=== PATIENT | female | born 2000 | race Caucasian/White ===

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

== ENCOUNTER 2018-02-08 03:12 | Emergency (ER) | payer MEDICAID, OTHER ==
[2018-02-08 03:25] VITALS: BP 106/69; PULSE 92; RESP 14; TEMP 97.5; O2SAT 97
--- NOTE | 2018-02-08 03:47 | C.PDOC ---
History Of Present Illness 17 year old female presents to the ER after vomiting dark material 6 hours ago. Patient had churros and popcorn for dinner, she reports she felt whoosy and anxious after vomiting and right sided abdominal discomfort during vomiting episode which has resolved since then. Patient has a Hx of anxiety with many prior evaluations in the ER. Denies chest pain or SOB. Time Seen by Provider: 02/08/18 03:34 Chief Complaint (Nursing): GI Problem History Per: Patient History/Exam Limitations: no limitations Current Symptoms Are (Timing): Still Present Quality Of Discomfort: Unable To Describe Associated Symptoms: Vomiting. denies: Fever, Chills, Chest Pain, Other (SOB) Exacerbating Factors: None Alleviating Factors: None Recent travel outside of the [place]: No Abnormal Vaginal Bleeding: No Past Medical History Reviewed: Historical Data, Nursing Documentation, Vital Signs Vital Signs: Last Vital Signs Temp 97.5 F L 02/08/18 03:20 Pulse 92 H 02/08/18 03:20 Resp 14 02/08/18 03:20 BP 106/69 02/08/18 03:20 Pulse Ox 97 02/08/18 04:54 - Medical History PMH: Anemia Family History: States: Unknown Family Hx - Social History Hx Tobacco Use: No Hx Alcohol Use: No Hx Substance Use: No - Immunization History Hx Tetanus Toxoid Vaccination: No Hx Influenza Vaccination: No Hx Pneumococcal Vaccination: No Review Of Systems Constitutional: Negative for: Fever, Chills Cardiovascular: Negative for: Chest Pain, Palpitations Respiratory: Negative for: Cough, Shortness of Breath Gastrointestinal: Positive for: Vomiting. Negative for: Abdominal Pain Physical Exam - Physical Exam Appears: Non-toxic, No Acute Distress Skin: Normal Color, Warm, Dry Head: Atraumatic, Normacephalic Eye(s): bilateral: Normal Inspection Oral Mucosa: Moist Chest: Symmetrical, No Tenderness Cardiovascular: Rhythm Regular Respiratory: Normal Breath Sounds, No Rales, No Rhonchi, No Wheezing Gastrointestinal/Abdominal: Soft, No Tenderness Neurological/Psych: Oriented x3, Normal Speech ED Course And Treatment O2 Sat by Pulse Oximetry: 97 (Room air) Pulse Ox Interpretation: Normal Medical Decision Making Medical Decision Making: nausea and vomiting 6 hrs ago benign exam now, pt admits to anxiety and no nausea nor abd pain now. h/o same, "many times" mother refused urine and blood tests, but demands diagnosis of this, which has happened "many times before" without evaluation. Mother is concerned about "stones" when asked does the child have a history of renal or GB stones, answers in the negative. When explained that renal colic and biliary colic are of low suspicion, though may be further evaluated with blood and urinalysis pt's mother is incredulous that diagnosis is not able to be made purely on the HPI. pt's mother doubts the validity of this MD's credentials as unable to make diagnosis of this asymptomatic patient without further testing. pt's mother scoffed that dyspepsia may be related to eating Churros and Popcorn and soda for a dinner meal. She refuses to put on patient gown, refuses to provide urinalysis Pt's mother demands to see News Broadcaster Telemarketing Fundraiser, which was explained may be accommodated but workup of blood and urine would still have to be processed. pt's mother is incredulous that her 17 y/o daughter may not be seen by News Broadcaster immediately without workup. destiny mother @ bedside seems intoxicated- strong smell of alcohol on her breath , argumentative, confrontational, foul-mouthed. pt and mother decline further w/u and eloped from ED within 5 minutes of initial approach to bedside. Disposition - Disposition Disposition: ELOPEMENT - ER ONLY Disposition Time: 03:47 Condition: GOOD Forms: [facility] (Mozambican) - Clinical Impression Clinical Impression: Vomiting - Scribe Statement The provider has reviewed the documentation as recorded by the Scriblolly Shabazz All medical record entries made by the Tanmayiblolly were at my direction and personally dictated by me. I have reviewed the chart and agree that the record accurately reflects my personal performance of the history, physical exam, medical decision making, and the department course for this patient. I have also personally directed, reviewed, and agree with the discharge instructions and disposition.
== END 2018-02-08 03:34 | disposition left against medical advice (07) ==
LOC: C.ER 03:12
DX: R11.10 Vomiting, unspecified (principal)

== ENCOUNTER 2018-09-01 18:07 | Emergency (ER) | payer MEDICAID ==
[2018-09-01 19:49] LABS: HCG,QUALITATIVE URINE NEGATIVE (NEGATIVE)
[2018-09-01] MEDS ORDERED: Sodium Chloride 0.9% 1,000 ML IV ONE (20:01)
--- NOTE | 2018-09-01 20:01 | C.PDOC ---
History Of Present Illness 17 y/o female presents to the ER complaining of LLQ abdominal pain which has been present for the past few days. Patient describes the pain as sharp ,stabbing, and intermittent. Patient rates the pain 3/10. Denies having nausea, vomiting, and urinary symptoms. Time Seen by Provider: 09/01/18 20:00 Chief Complaint (Nursing): Abdominal Pain History Per: Patient History/Exam Limitations: no limitations Onset/Duration Of Symptoms: Days Current Symptoms Are (Timing): Still Present Severity: Moderate Location Of Pain/Discomfort: LLQ Associated Symptoms: denies: Nausea, Vomiting, Urinary Symptoms Past Medical History Reviewed: Historical Data, Nursing Documentation, Vital Signs Vital Signs: Last Vital Signs Temp 98.8 F 09/01/18 18:14 Pulse 111 H 09/01/18 18:14 Resp 19 09/01/18 18:14 BP 109/76 09/01/18 18:14 Pulse Ox 100 09/01/18 18:14 - Medical History PMH: Anemia Surgical History: No Surg Hx Family History: States: No Known Family Hx - Social History Hx Tobacco Use: No Hx Alcohol Use: No Hx Substance Use: No - Immunization History Hx Tetanus Toxoid Vaccination: No Hx Influenza Vaccination: No Hx Pneumococcal Vaccination: No Review Of Systems Constitutional: Negative for: Fever, Chills Gastrointestinal: Positive for: Abdominal Pain (LLQ abdominal pain). Negative for: Nausea, Vomiting Genitourinary: Negative for: Dysuria, Hematuria Physical Exam - Physical Exam Appears: Non-toxic, No Acute Distress Skin: Warm, Dry Head: Normacephalic Eye(s): bilateral: Normal Inspection Cardiovascular: Rhythm Regular Respiratory: No Rales, No Rhonchi, No Wheezing Gastrointestinal/Abdominal: Soft, Tenderness (LLQ tenderness), No Guarding, No Rebound Neurological/Psych: Oriented x3, Normal Speech ED Course And Treatment - Laboratory Results Result Diagrams: 09/01/18 20:26 09/01/18 20:26 O2 Sat by Pulse Oximetry: 100 (RA) Pulse Ox Interpretation: Normal Progress Note: Labs, UA, HCG, and CT- Abd & Pelv ordered. Patient treated with Pepcid IV and IV Fluids. Reevaluation Time: 23:23 Reassessment Condition: Improved Medical Decision Making Medical Decision Making: Upon provider reevaluation patient is feeling better, is medically stable, and requires no further treatment in the ED at this time. Patient will be discharged home with Rx for macrobid, miralax. Counseling was provided and all questions were answered regarding diagnosis and need for follow up dr santana. There is agreement to discharge plan. Return if symptoms persist or worsen. Disposition Counseled Patient/Family Regarding: Studies Performed, Diagnosis, Need For Followup, Rx Given - Disposition Referrals: Mitch Santana [Medical Doctor] - Disposition: HOME/ ROUTINE Disposition Time: 20:01 Condition: FAIR Additional Instructions: Please return if symptoms recur Prescriptions: Nitrofurantoin Macrocrystals [Macrobid] 1 cap PO BID #14 cap Polyethylene Glycol 3350 [Miralax] 17 gm PO DAILY #270 ml Instructions: Acute Abdomen (Belly Pain), Adult (DC), Urinary Tract Infections in Adults, Constipation, Adult (DC) Forms: [employer] (Saudi Arabian) - Clinical Impression Clinical Impression: Abdominal pain, UTI (urinary tract infection), Constipation, Enteritis - Scribe Statement The provider has reviewed the documentation as recorded by the Bonnie Carrero Provider Attestation: All medical record entries made by the Tanmayibe were at my direction and personally dictated by me. I have reviewed the chart and agree that the record accurately reflects my personal performance of the history, physical exam, medical decision making, and the department course for this patient. I have also personally directed, reviewed, and agree with the discharge instructions and disposition.
[2018-09-01 20:15] LABS: SQUAMOUS EPITHIAL 8 /hpf (0-5); URINE BACTERIA FEW (<OCC); URINE BILIRUBIN NEGATIVE (NEGATIVE); URINE BLOOD 1+ (NEGATIVE); URINE CLARITY Hazy (Clear); URINE COLOR Straw (YELLOW); URINE GLUCOSE (UA) NORMAL (Normal); URINE LEUKOCYTE ESTERASE 3+ Leu/uL (Negative); URINE PROTEIN NEGATIVE (NEGATIVE); URINE UROBILINOGEN NORMAL mg/dL (0.2-1.0)
[2018-09-01] MEDS ORDERED: Sodium Chloride 0.9% 1,000 ML ONE (20:28)
[2018-09-01 20:36] LABS: BASO # 0.1 K/uL (0.0-0.2); BASO % 0.9 % (0.0-2.0); EOS # 0.1 K/uL (0.0-0.7); EOS % 1.5 % (0.0-4.0); HEMOGLOBIN 12.6 g/dL (11.0-16.0); LYMPH # 3.1 K/uL (1.0-4.3); LYMPH % 40.8 % (20.0-40.0); MEAN CELL VOLUME 87.1 fL (81.0-99.0); MEAN CORPUSCULAR HEMOGLOBIN 29.2 pg (27.0-31.0); MEAN CORPUSCULAR HGB CONC 33.5 g/dL (33.0-37.0); MEAN PLATELET VOLUME 9.2 fL (7.2-11.7); MONO # 0.5 K/uL (0.0-0.8); MONO % 6.6 % (0.0-10.0); NEUT # 3.8 K/uL (1.8-7.0); NEUT % 50.2 % (50.0-75.0); RBC 4.32 Mil/uL (3.80-5.20); RED CELL DISTRIBUTION WIDTH 14.5 % (11.5-14.5); WHITE BLOOD COUNT 7.6 K/uL (4.8-10.8)
[2018-09-01] MEDS ORDERED: cefTRIAXone IV 1 gm in Dextros 50 ML IVPB ONE (20:39)
[2018-09-01 20:51] LABS: ALB/GLOB RATIO 1.7 (1.0-2.1); ALBUMIN 5.1 g/dL (3.5-5.0); ALT/SGPT 25 U/L (9-52); AST/SGOT 24 U/L (14-36); BLOOD UREA NITROGEN 8 mg/dL (7-17); CALCIUM 9.8 mg/dl (8.6-10.4); GFR NON-AFRICAN AMERICAN > 60; LIPASE 79 U/L (23-300)
[2018-09-01 20:54] LABS: INR 1.2; PROTHROMBIN TIME 12.6 SECONDS (9.7-12.2)
[2018-09-01] MEDS ORDERED: Iodixanol 320 MG/ML 100 ML BOTTLE IV ONE (21:20)
[2018-09-01 21:29] VITALS: O2SAT 100
[2018-09-01 23:37] VITALS: BP 103/64; PULSE 60; RESP 14; TEMP 98.6
--- NOTE | 2018-09-02 08:28 | CT ---
Date of service: 09/01/2018 PROCEDURE: CT Abdomen and Pelvis without intravenous contrast HISTORY: Abdominal pain COMPARISON: None. TECHNIQUE: Multiple contiguous axial images were performed through the abdomen and pelvis with the use of intravenous contrast. Subsequently, sagittal and coronal reformatted images were obtained. Radiation dose: Total exam DLP = 193 mGy-cm. This CT exam was performed using one or more of the following dose reduction techniques: Automated exposure control, adjustment of the mA and/or kV according to patient size, and/or use of iterative reconstruction technique. FINDINGS: LOWER THORAX: Unremarkable. LIVER: Unremarkable. No gross lesion or ductal dilatation. GALLBLADDER AND BILE DUCTS: Prior cholecystectomy. PANCREAS: Unremarkable. No gross lesion or ductal dilatation. SPLEEN: Unremarkable. ADRENALS: Unremarkable. No mass. KIDNEYS AND URETERS: Unremarkable. No hydronephrosis. No solid mass. VASCULATURE: Unremarkable. No aortic aneurysm. BOWEL: Mild bowel wall thickening of the small bowel with mild fluid distension. Moderate amount of stool fills the colon. APPENDIX: Unremarkable. Normal appendix. PERITONEUM: Small amount of free fluid in the pelvic cul-de-sac. LYMPH NODES: Few shotty mesenteric lymph nodes for example in the right lashay abdomen measuring up to 1.1 centimeters on series 3, image 86, nonspecific. Few shotty para-aortic inguinal lymph nodes. BLADDER: Unremarkable. REPRODUCTIVE: 1.7 x 1.6 centimeter mildly complex low-attenuation lesion in right adnexa. BONES: No acute fracture. OTHER FINDINGS: None. IMPRESSION: 1.7 x 1.6 centimeter mildly complex low-attenuation lesion in the right adnexa. Small amount of free fluid in the pelvic cul-de-sac. Clinical correlation. Correlation with pelvic ultrasound may be helpful if clinically indicated. Mild enteritis. Clinical correlation. Mild constipation. Few shotty mesenteric lymph nodes as described above. Clinical correlation. These findings were preliminarily reported at 11:14 p.m. on 09/01/[address] Jacob Fontaine from [employer].
== END 2018-09-01 23:50 | disposition home or self-care (01) ==
LOC: C.ER 18:07
DX: K52.9 Noninfective gastroenteritis and colitis, unspecified (principal); N39.0 Urinary tract infection, site not specified; K59.00 Constipation, unspecified; R10.9 Unspecified abdominal pain
CPT/HCPCS: 74177; 80053; 81001; 83690; 84703; 85025; 85610; 85730; 96374; 99284; J0696; J2405; J7030; Q9967

== ENCOUNTER 2019-01-15 18:51 | Emergency (ER) | payer MEDICAID ==
[2019-01-15 18:56] VITALS: BMI 21.2
[2019-01-15 18:59] VITALS: BP 108/67; PULSE 84; RESP 18; TEMP 98.9; O2SAT 100
--- NOTE | 2019-01-15 19:03 | C.PDOC ---
History Of Present Illness 18 year old female with no PMHx presents to ED with complaint of right ankle pain s/p injury that occurred 1 hour ago. Patient states she was running when she tripped and twisted her right ankle. She has pain to the top of her right foot, anterior lower leg, and her medial ankle. She states she has difficulty ambulating secondary to the pain but is able to bear weight. States she has hurt her right foot in the past. She denies head strike or LOC. No open wounds, numbness, paresthesias, or weakness. Time Seen by Provider: 01/15/19 19:01 Chief Complaint (Nursing): Lower Extremity Problem/Injury History Per: Patient History/Exam Limitations: no limitations Onset/Duration Of Symptoms: Hrs (1) Current Symptoms Are (Timing): Still Present - Ankle/Foot Description Of Injury: Fell, Twisted Currently Unable To: Other (ambulate) Past Medical History Reviewed: Historical Data, Nursing Documentation, Vital Signs Vital Signs: Last Vital Signs Temp 98.9 F 01/15/19 18:56 Pulse 84 01/15/19 18:56 Resp 18 01/15/19 18:56 BP 108/67 01/15/19 18:56 Pulse Ox 100 01/15/19 18:56 - Medical History PMH: Anemia, Gall Bladder Disease Surgical History: Cholecystectomy Family History: States: Unknown Family Hx - Social History Hx Tobacco Use: No Hx Alcohol Use: No Hx Substance Use: No - Immunization History Hx Tetanus Toxoid Vaccination: No Hx Influenza Vaccination: No Hx Pneumococcal Vaccination: No Review Of Systems Constitutional: Negative for: Fever, Chills, Weakness Eyes: Negative for: Vision Change Cardiovascular: Negative for: Chest Pain, Palpitations, Light Headedness Respiratory: Negative for: Cough, Shortness of Breath Gastrointestinal: Negative for: Nausea, Vomiting, Abdominal Pain, Diarrhea Musculoskeletal: Positive for: Foot Pain (top of right foot), Other (right medial ankle pain) Skin: Negative for: Rash, Bruising Neurological: Negative for: Weakness, Numbness, Headache, Dizziness Physical Exam - Physical Exam Appears: Well, Non-toxic, No Acute Distress Skin: Normal Color, Warm, Dry Head: Atraumatic, Normacephalic Eye(s): bilateral: Normal Inspection, PERRL, EOMI Nose: Normal Neck: Normal ROM, Supple Chest: Symmetrical, No Deformity Cardiovascular: Rhythm Regular Respiratory: Normal Breath Sounds, No Accessory Muscle Use Back: Normal Inspection Extremity: No Normal ROM (decreased ROM to right ankle and digits secondary to pain), Tenderness (to the proximal metatarsels on the right foot; anterior distal tibia; and the medial malleolus), Capillary Refill (<2 seconds), Swelling (mild to lateral dorsal right foot), Other (normal thompsons test, achilles tendon intact) Extremity: Left: Atraumatic, Normal Color And Temperature Pulses: Left Radial: Normal, Right Radial: Normal, Left Dorsalis Pedis: Normal, Right Dorsalis Pedis: Normal Neurological/Psych: Oriented x3, Normal Speech, Normal Cognition, Normal Motor, Normal Sensation Gait: With Assistance ED Course And Treatment O2 Sat by Pulse Oximetry: 100 (RA) Medical Decision Making Medical Decision Making: Impression: Right ankle injury Plan: * Right Ankle XR * Right Foot XR * Right Tib/Fib XR Xrays negative as read by me Splint applied to right ankle and crutches provided by process development technician secondary to pain and difficulty ambulating. Neurovascular exam remains unchanged after splint, pt able to move digits without difficulty, DP pulse 2/2. Advised podiatry followup. Pt states she will followup as instructed. Patient able to demonstrate safe and appropriate crutch use before leaving ED. Diagnostic testing results and plan of care discussed with patient. Strict instructions given regarding importance of followup, and signs/symptoms to return to ER including worsening pain, numbness, paresthesias, or any other new/worsening symptoms. Pt verbalized understanding of discussion. Patient is A&Ox3, ambulating with steady gait with crutches, with vital signs stable for discharge. Disposition - Disposition Referrals: [facility] [Outside] Podiatry Clinic [Outside] Disposition: HOME/ ROUTINE Disposition Time: 21:00 Condition: IMPROVED Additional Instructions: Ibuprofen as needed for pain Use crutches for ambulation Keep splint on and dry until followup with podiatry Followup with podiatry within 2 days Followup with primary doctor within 2 days Return to ER with any new/worsening symptoms Instructions: Ankle Sprain (DC), Foot Sprain (DC) Forms: General Discharge Instructions, [facility] (Panamanian), School Excuse, Work Excuse - Clinical Impression Clinical Impression: Ankle sprain, Foot sprain - PA / OPERATING TABLE ASSEMBLER / Resident Statement MD/DO has reviewed & agrees with the documentation as recorded. (Chrystal Silva) - Scribe Statement The provider has reviewed the documentation as recorded by the Scribe (Chrystal Silva) All medical record entries made by the Scribe were at my direction and personally dictated by me. I have reviewed the chart and agree that the record accurately reflects my personal performance of the history, physical exam, medical decision making, and the department course for this patient. I have also personally directed, reviewed, and agree with the discharge instructions and disposition.
--- NOTE | 2019-01-16 09:11 | RAD ---
PROCEDURE: Right Ankle Radiographs. HISTORY: ankle injury COMPARISON: None available. FINDINGS: BONES: Irregularity of the mid inferior contour of the talus seen on lateral view presumably related to reported history of prior fracture. JOINTS: No dislocation. SOFT TISSUES: Soft tissue swelling. No evidence of radiopaque foreign body. OTHER FINDINGS: None. IMPRESSION: Soft tissue swelling. Irregularity of the mid inferior contour of the talus seen on lateral view presumably related to reported history of prior fracture. Correlate clinically. Cross-sectional imaging may be considered if indicated.
--- NOTE | 2019-01-16 09:17 | RAD ---
PROCEDURE: Right foot radiographs. HISTORY: trauma, foot pain COMPARISON: None available. FINDINGS: BONES: No acute displaced fracture. Questionable irregularity of the inferior mid talus demonstrated on ankle radiographs not appreciated on this examination. JOINTS: No dislocation. SOFT TISSUES: Soft tissue swelling. No evidence of radiopaque foreign body. OTHER FINDINGS: None. IMPRESSION: Soft tissue swelling. No acute displaced fracture, dislocation, or significant joint effusion identified. Questionable irregularity of the inferior mid talus demonstrated on ankle radiographs not appreciated on this examination. If symptoms persist, or if there is continued clinical concern, x-ray follow-up in 7-10 days should be considered.
--- NOTE | 2019-01-16 09:48 | RAD ---
Date of service: 01/15/2019 PROCEDURE: Radiographs of the right tibia and fibula. HISTORY: trauma today, pain COMPARISON: None available TECHNIQUE: Frontal and lateral views obtained. FINDINGS: BONES: Bone alignment and mineralization are normal. There is no acute displaced fracture or bone destruction. JOINT SPACES: Unremarkable. OTHER FINDINGS: None. IMPRESSION: No acute fracture or dislocation.
== END 2019-01-15 21:35 | disposition home or self-care (01) ==
LOC: C.ER 18:51
DX: S93.401A Sprain of unspecified ligament of right ankle, initial encounter (principal); S93.601A Unspecified sprain of right foot, initial encounter; W01.0XXA Fall on same level from slipping, tripping and stumbling without subsequent striking against object, initial encounter; Y93.02 Activity, running